=== PATIENT | male | born 2000 | race Hispanic/Latino ===

== ENCOUNTER 2024-05-18 08:10 | Emergency (ER) | payer BC, SELFPAY ==
[2024-05-18 08:40] VITALS: BP 153/94; PULSE 70; RESP 18; TEMP 36; O2SAT 100
--- NOTE | 2024-05-18 09:03 | ED.GENADULT ---
HPI - General Adult General Chief complaint: Nausea/Vomiting/Diarrhea Stated complaint: fever and diarrhea Time Seen by Provider: 05/18/24 09:03 Source: patient Mode of arrival: ambulatory Limitations: no limitations History of Present Illness HPI narrative: 23-year-old male patient presents to the [facility] with complaints of diarrhea for the last 3 days, fevers but he does not know how high his fevers that continues never measured it and chills. Patient states he has had decreased appetite and has just been feeling fatigued. Denies abdominal pain denies vomiting. Denies cough, runny nose or congestion. Related Data Home Medications Medication Instructions Recorded Confirmed No Home Medications 05/18/24 05/18/24 Allergies Allergy/AdvReac Type Severity Reaction Status Date / Time No Known Allergies Allergy Verified 05/18/24 08:38 Review of Systems Review of Systems: CONSTITUTIONAL: Positive subjective fever, chills, denies sweats. positive fatigue EYES: Denies visual changes, redness, or discharge. ENT: Denies rhinorrhea, congestion, sore throat, or otalgia. CARDIOVASCULAR: Denies chest pain, palpitations, or edema. RESPIRATORY: Denies cough or dyspnea. GASTROINTESTINAL: Denies abdominal pain, nausea, vomiting, positive diarrhea. GENITOURINARY: Denies dysuria or hematuria. SKIN: Denies rash or itching. MUSCULOSKELETAL: Denies back pain, joint pain, or myalgia. NEUROLOGIC: Denies headache, numbness, or weakness. PSYCHIATRIC: Denies anxiety or depression. [facility] Past Medical History Medical History (Updated 05/18/24 @ 09:21 by SHELBIE Malcolm) No significant past medical history Comments At the time of my signature I agree with nursing past medical history, surgical, social, and family history. There is no relevant family history pertinent to the presenting complaint. Exam Narrative: GENERAL: Well-appearing, well-nourished, and in no acute distress. HEAD: Normocephalic, atraumatic. EYES: PERRLA and EOMI. ENT: Nares clear, no rhinorrhea or epistaxis. Mucous membranes moist. NECK: Supple. No lymphadenopathy CHEST: Clear to auscultation. No respiratory distress. HEART: Regular rate and rhythm. No murmur heard. Normal peripheral pulses. ABDOMEN: Soft, flat, nondistended. No guarding, rebound tenderness, or rigid. No pulsatilla masses. hyperactive Bowel sounds present in all four quadrants. No organomegaly. Negative Dinh?s sign. No periumbilical tenderness. No Supra public tenderness or distension. Good femoral pulses bilaterally. No hernia noted. No scars or surface trauma. EXTREMITIES: Normal range of motion. No edema. SKIN: Warm, dry, no rash. NEURO: No focal deficits. Alert and oriented x3. Course Course Level of Care: Express Care Visit Vital Signs Vital signs: Vital Signs Temperature 36.0 C L 05/18/24 08:40 Pulse Rate 70 05/18/24 08:40 Respiratory Rate 18 05/18/24 08:40 Blood Pressure 153/94 H 05/18/24 08:40 Pulse Oximetry 100 05/18/24 08:40 Oxygen Delivery Room Air 05/18/24 08:40 Temperature 36.0 C L 05/18/24 08:40 Pulse Rate 70 05/18/24 08:40 Respiratory Rate 18 05/18/24 08:40 Blood Pressure 153/94 H 05/18/24 08:40 Pulse Oximetry 100 05/18/24 08:40 Oxygen Delivery Room Air 05/18/24 08:40 Vital signs reviewed. The patient has been informed that they may have pre-hypertension or Hypertension based on a BP reading in the department. I recommend that the patient call the primary care provider listed on their discharge instructions or a physician of their choice this week to arrange follow up for further evaluation of possible pre-hypertension or Hypertension Medical Decision Making MDM Narrative Medical decision making narrative: discussed patient the fact that he is not having any vomiting and no abdominal pain is reassuring. Discussed with patient this is most likely a virus but his flu a and COVID test did come back nega
[2024-05-18 09:10] LABS: EDCOVIDSCREEN Negative (Negative); EDSTREPNEGPOS1 Negative (Negative)
[2024-05-18 09:26] LABS: EDINFLUASCREEN Negative (Negative); EDINFLUBSCREEN Negative (Negative)
== END 2024-05-18 09:17 | disposition home or self-care (01) ==
PROVIDERS: Emergency Provider Nurse Practitioner Family; Referring Provider Emergency Medicine
DX: K52.9 Noninfective gastroenteritis and colitis, unspecified (principal); Z20.822 Contact with and (suspected) exposure to COVID-19
CPT/HCPCS: 87426; 87804; 87880; 99203; G0463